=== PATIENT | female | born 1945 | race Caucasian/White ===

== ENCOUNTER 2021-02-25 23:46 | Observation (INO) | payer MEDICARE, OTHER ==
[2021-02-25] MEDS ORDERED: IPRATROPIUM/ALBUTEROL 3 ML NEB INH STA (23:51)
[2021-02-25] MEDS ORDERED: methylPREDNISolone SUCCINATE 125 MG/2 ML VIAL IVP STA (23:52)
[2021-02-25] MEDS ORDERED: ALBUTEROL NEB 2.5 MG/3 ML INH STA ×2 (23:52)
[2021-02-25] MEDS ORDERED: IPRATROPIUM/ALBUTEROL 3 ML NEB INH ONE (23:54)
--- NOTE | 2021-02-26 00:08 | ED Physician Documentation ---
History of Present Illness - Stated complaint Stated Complaint: SOA - History obtained from History obtained from: Family (daughter) - Additonal information Additional information: 72-year-old woman with history of end-stage COPD and depression, noncompliant with medications, presents with severe worsening shortness of breath tonight and chronic cough that is worsening tonight. Patient had 2 nebulizer treatments today prior to arrival without improvement. She is vaccinated against COVID-19. He did have some recent travel but no known Covid exposure. Further history limited by patient acuity/inability to speak. History obtained from her daughter. Full code Review of Systems Unable to obtain: Other (Review of systems limited by patient acuity) PD PAST MEDICAL HISTORY - Present Medications Home Medications: Ambulatory Orders Medication Instructions Recorded Confirmed Albuterol Sulf [Ventolin Hfa 2 puffs ORAL QID 02/26/21 02/26/21 Inhaler] Escitalopram Oxalate 20 mg PO DAILY 02/26/21 02/26/21 Omeprazole [PriLOSEC] 20 mg PO DAILY 02/26/21 02/26/21 - Allergies Allergies/Adverse Reactions: Allergies Allergy/AdvReac Type Severity Reaction Status Date / Time No Known Drug Allergies Allergy Verified 02/26/21 00:30 PD ED PE NORMAL - Vitals Vital signs reviewed: Yes - General General: Other (Moderate increased work of breathing, unable to speak. Squeezes hand on command) - HEENT HEENT: Atraumatic, PERRL, EOMI - Neck Neck: Supple, no meningeal sign - Cardiac Cardiac: Other (Borderline tachycardic rate, regular rhythm) - Respiratory Respiratory: Other (Bilateral inspiratory and expiratory wheezing. Moderate increased work of breathing) - Abdomen Abdomen: Non tender, Non distended - Derm Derm: Normal color, Warm and dry - Extremities Extremities: No edema - Psych Psych: Other (Unable to assess secondary to patient respiratory distress) Results - Vitals Vitals: Vital Signs - 24 hr 02/26/21 02/26/21 02/26/21 00:03 00:10 00:31 Heart Rate 107 H 101 H 100 Respiratory 33 H 26 H 28 H Rate Blood Pressure 179/165 H 148/101 H O2 Saturation 97 96 02/26/21 02/26/21 00:38 00:43 Heart Rate 102 H 102 H Respiratory 26 H 22 Rate Blood Pressure 159/115 H O2 Saturation 98 Oxygen O2 Source BIPAP - Labs Labs: Laboratory Tests 02/26/21 02/26/21 02/26/21 00:05 00:19 00:19 WBC 14.0 H RBC 5.16 Hgb 15.9 Hct 49.6 H MCV 96.1 MCH 30.8 MCHC 32.1 RDW 14.8 Plt Count 163 MPV 13.0 H Neut # (Auto) Not Reportable Lymph # (Auto) Not Reportable [place] # (Auto) Not Reportable Eos # (Auto) Not Reportable Baso # (Auto) Not Reportable Absolute Nucleated RBC Not Reportable Total Counted 100 Band Neuts % (Manual) 0 Abnorm Lymph % (Manual) 0 Nucleated RBC % Not Reportable Neutrophils # (Manual) 9.7 H Lymphocytes # (Manual) 3.5 Monocytes # (Manual) 0.6 Eosinophils # (Manual) 0.3 Basophils # (Manual) 0.0 Differential Comment MANUAL DIFFERENTIAL WBC Morphology NORMAL APPEARANCE Platelet Estimate NORMAL (130-450,000) Platelet Morphology NORMAL APPEARANCE RBC Morph Micro Appear NORMAL APPEARANCE Bld Gas Analysis Time 0008 Sample Site LEFT RADIAL ABG pH 7.17 L* ABG pCO2 73 H* ABG pO2 331 H* ABG HCO3 25.7 ABG Total CO2 28.0 ABG O2 Saturation 99 H ABG Base Excess -4.9 L Clinton Test POSITIVE O2 Delivery Device NON REBREATHER MASK FiO2 15.00 Sodium 138 Potassium 4.3 Chloride 101 Carbon Dioxide 25 Anion Gap 12.0 BUN 21 H Creatinine 1.5 H Estimated GFR (MDRD) 34 L Glucose 224 H Calcium 9.2 Total Bilirubin 0.9 AST 24 ALT 17 Alkaline Phosphatase 74 Total Protein 6.7 Albumin 4.7 Globulin 2.0 L Albumin/Globulin Ratio 2.4 H Lipase 21 L PD MEDICAL DECISION MAKING - ED course ED course: 76-year-old woman presents with severe COPD exacerbation. She is full code per her daughter. Will treat with BiPAP, nebulizers, steroids, plan for admission. improved WOB s/p 3 nebs. currently still on bipap. plan to admit to observation, repeat abg. Departure - Departure Disposition: ED Place in Observation Clinical Impression: COPD exacerbation Condition: Stable
[2021-02-26 00:26] LABS: BASOPHILS % (AUTO) 0.9 %; EOSINOPHILS % (AUTO) 3.1 %; HCT - HEMATOCRIT 49.6 % (37.0-47.0); HGB - HEMOGLOBIN 15.9 g/dL (12.0-16.0); LYMPHOCYTES % (AUTO) 20.5 %; MEAN CORPUSCULAR HEMOGLOBIN 30.8 pg (27.0-31.0); MEAN CORPUSCULAR HGB CONC 32.1 g/dL (32.0-36.0); MEAN CORPUSCULAR VOLUME 96.1 fL (81.0-99.0); MONOCYTES % (AUTO) 5.6 %; NEUTROPHILS % (AUTO) 69.3 %; PLT - PLATELET COUNT 163 10^3/uL (130-450); RED BLOOD COUNT 5.16 10^6/uL (4.20-5.40); RED CELL DISTRIBUTION WIDTH 14.8 % (12.0-15.0)
[2021-02-26 00:38] LABS: ABNORMAL LYMPHS % (MANUAL) 0 %; BAND NEUTROPHILS % (MANUAL) 0 %
[2021-02-26 00:39] LABS: ALBUMIN 4.7 g/dL (3.2-5.5); ALBUMIN/GLOBULIN RATIO 2.4 (1.0-2.2); BILIRUBIN,TOTAL 0.9 mg/dL (0.2-1.0); CALCIUM 9.2 mg/dL (8.5-10.3); CREATININE 1.5 mg/dL (0.4-1.0); POTASSIUM 4.3 mmol/L (3.5-5.0); TOTAL PROTEIN 6.7 g/dL (6.7-8.2)
[2021-02-26 00:51] LABS: ABG BASE EXCESS -4.9 mmol/L (-2.0-3.0); ABG HCO3 25.7 mmol/L (22.0-26.0); ABG OXYGEN SATURATION 99 % (94-98); ALLEN TEST POSITIVE
[2021-02-26] MEDS ORDERED: AZITHROMYCIN INJ 500 MG in SODIUM CHLORIDE 0.9% 250 ML IV STA (00:52)
[2021-02-26] MEDS ORDERED: cefTRIAXone 2 GM in SODIUM CHLORIDE 0.9% MINIBAG 100 ML IV STA (00:52)
[2021-02-26 00:55] LABS: ABG PH 7.17 (7.35-7.45)
[2021-02-26 00:56] LABS: ABG PCO2 73 mmHg (34-45); ABG PO2 331 mmHg (80-100)
[2021-02-26] MEDS ORDERED: cefTRIAXone 2 GM VIAL ONE (01:01)
[2021-02-26 01:03] LABS: DIFFERENTIAL COMMENT MANUAL DIFFERENTIAL; EOSINOPHILS # (MANUAL) 0.3 10^3/uL (0-0.7); LYMPHOCYTES # (MANUAL) 3.5 10^3/uL (1.5-3.5); LYMPHOCYTES % (MANUAL) 25 %; MONOCYTES # (MANUAL) 0.6 10^3/uL (0.0-1.0); NEUTROPHILS # (MANUAL) 9.7 10^3/uL (1.5-6.6); PLATELET ESTIMATE, MANUAL NORMAL (130-450,000) (NORMAL); PLATELET MORPHOLOGY NORMAL APPEARANCE (NORMAL); RBC MORPHOLOGY (MULTIPLE) NORMAL APPEARANCE (NORMAL); WBC MORPHOLOGY (MULTIPLE) NORMAL APPEARANCE (NORMAL)
[2021-02-26] MEDS ORDERED: HYDROcod/ACETAM 5/325 MG TABLET PO PRN (01:11)
[2021-02-26] MEDS ORDERED: ONDANSETRON ODT 4 MG TABLET TL PRN (01:11)
[2021-02-26] MEDS ORDERED: ACETAMINOPHEN 325 MG TABLET PO PRN (01:11)
[2021-02-26] MEDS ORDERED: SODIUM CHLORIDE FLUSH 0.9% 10 ML SYRINGE IVP PRN (01:11)
[2021-02-26] MEDS ORDERED: ONDANSETRON 4 MG/2 ML VIAL IVP PRN (01:11)
[2021-02-26 01:20] LABS: B. PARAPERTUSSIS- RESP PCR PAN NOT DETECTED; B. PERTUSSIS- RESP PCR PANEL NOT DETECTED; C. PNEUMONIAE- RESP PCR PANEL NOT DETECTED; CORONAVIRUS 229E-RESP PCR NOT DETECTED; CORONAVIRUS HKU1-RESP PCR NOT DETECTED; CORONAVIRUS NL63-RESP PCR NOT DETECTED; CORONAVIRUS OC43-RESP PCR NOT DETECTED; HUMAN METAPNEUMOVIRUS NOT DETECTED; INFLUENZA A- RESP PCR PANEL NOT DETECTED; INFLUENZA B - RESP PCR PANEL NOT DETECTED; M. PNEUMONIAE- RESP PCR PANEL NOT DETECTED; PARAINFLUENZA VIRUS 1 NOT DETECTED; PARAINFLUENZA VIRUS 2 NOT DETECTED; PARAINFLUENZA VIRUS 3 NOT DETECTED; PARAINFLUENZA VIRUS 4 NOT DETECTED; RHINOVIRUS/ENTEROVIRUS NOT DETECTED; RSV- RESP PCR PANEL NOT DETECTED; SARS-CoV-2 -RESP PCR PANEL NOT DETECTED
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
[2021-02-26] MEDS ORDERED: SODIUM CHLORIDE 0.9% 1,000 ML IV SCH (02:00)
[2021-02-26 02:25] LABS: ABG HCO3 28.3 mmol/L (22.0-26.0); ABG OXYGEN SATURATION 97 % (94-98); ABG PCO2 44 mmHg (34-45); ABG PH 7.41 (7.35-7.45); ABG PO2 88 mmHg (80-100); ABG RESPIRATORY RATE 16 b/min; ALLEN TEST POSITIVE
[2021-02-26] MEDS ORDERED: ALBUTEROL NEB 2.5 MG/3 ML INH PRN (07:42)
--- NOTE | 2021-02-26 08:01 | XRAY Report ---
PROCEDURE: Chest 1 View X-Ray INDICATIONS: Chest Pain TECHNIQUE: One view of the chest was acquired. COMPARISON: None FINDINGS: Surgical changes and devices: None. Lungs and pleura: No pleural effusions or pneumothorax. Lungs are clear. The lungs are hyperexpand ed. Mediastinum: The aorta is prominent and tortuous. The cardiac contours are within normal limits. Bones and chest wall: No suspicious bony lesions. Overlying soft tissues appear unremarkable. IMPRESSION: Hyperexpanded lungs are seen, without an acute cardiopulmonary abnormality seen. Note: No significant discrepancy from the preliminary report. Reviewed by: Maynor Salazar MD on 02/26/2021 7:00 AM DARIN Approved by: Maynor Salazar MD on 02/26/2021 7:00 AM DARIN Station ID: [id number]
[2021-02-26 08:23] LABS: BASOPHILS % (AUTO) 0.1 %; LYMPHOCYTES % (AUTO) 4.5 %; MEAN CORPUSCULAR HEMOGLOBIN 29.9 pg (27.0-31.0); MEAN CORPUSCULAR HGB CONC 31.1 g/dL (32.0-36.0); MEAN CORPUSCULAR VOLUME 96.2 fL (81.0-99.0); MONOCYTES % (AUTO) 1.5 %; NEUTROPHILS % (AUTO) 93.5 %; PLT - PLATELET COUNT 128 10^3/uL (130-450); RED BLOOD COUNT 4.68 10^6/uL (4.20-5.40); RED CELL DISTRIBUTION WIDTH 14.9 % (12.0-15.0); WHITE BLOOD COUNT 7.5 x10^3/uL (4.8-10.8)
[2021-02-26 08:24] LABS: ABNORMAL LYMPHS % (MANUAL) 0 %; BAND NEUTROPHILS % (MANUAL) 0 %
[2021-02-26 08:27] LABS: CALCIUM 9.1 mg/dL (8.5-10.3); CREATININE 0.8 mg/dL (0.4-1.0); MAGNESIUM 1.9 mg/dL (1.7-2.8); POTASSIUM 4.3 mmol/L (3.5-5.0)
[2021-02-26 08:47] LABS: DIFFERENTIAL COMMENT MANUAL DIFFERENTIAL; LYMPHOCYTES # (MANUAL) 0.4 10^3/uL (1.5-3.5); LYMPHOCYTES % (MANUAL) 5 %; MONOCYTES # (MANUAL) 0.2 10^3/uL (0.0-1.0); PLATELET ESTIMATE, MANUAL DECREASED (<130,000) (NORMAL); PLATELET MORPHOLOGY 1+ GIANT PLATELETS (NORMAL); RBC MORPHOLOGY (MULTIPLE) NORMAL APPEARANCE (NORMAL)
[2021-02-26] MEDS: IPRATROPIUM/ALBUTEROL 3 ML NEB INH SCH ×2 (08:59→12:08)
[2021-02-26] MEDS ORDERED: methylPREDNISolone SUCCINATE 40 MG/ML VIAL IVP SCH (09:00)
[2021-02-26] MEDS ORDERED: SODIUM CHLORIDE FLUSH 0.9% 10 ML SYRINGE IVP SCH (09:00)
[2021-02-26] MEDS ORDERED: cefTRIAXone 1 GM in SODIUM CHLORIDE 0.9% MINIBAG 100 ML IV SCH (09:00)
[2021-02-26] MEDS ORDERED: ENOXAPARIN 40 MG/0.4 ML SYRINGE SUBQ SCH (09:00)
--- NOTE | 2021-02-26 11:48 | DISCHARGE SUMMARY ---
Discharge Summary Admit Date: 02/26/21 Discharge Date: 02/26/21 Discharging Provider: Brian Chu Primary Care Provider: Out of state PCP Code Status: Attempt Resuscitation Condition at Discharge: Stable Discharge Disposition: 01 Home, Self Care - DIAGNOSES Admission Diagnoses: Acute respiratory failure with hypoxia and hypercapnia COPD exacerbation Dementia Discharge Diagnoses with Status of Each Condition: Acute respiratory failure with hypoxia and hypercapnia - resolved. COPD exacerbation - resolved. Dementia - stable. - HPI History of Present Illness: H&P per Dr. Strong: This is a 76-year-old white female who is described as having end-stage COPD by Her daughter who is at the bedside. She is Described as not very compliant with taking her medications as she is supposed to. She hates the inhalation machine that delivers nebulized albuterol. She is much prefer to do a hand-held nebulizer. Unfortunately she uses so much she is run out of that. She ran out about 2 days ago. If she gets a refill it will be an early refill and she has not asked her doctor back in [place] for 1.She is a previous history of a respiratory arrest with a resuscitation that was successful a little over a year ago. She still smokes 1 to 1-1/2 packs/day. She is not on oxygen at home. She is starting to have short-term memory issues, and can only walk about 25 or 30 feet. She lives with her back door facing her son's back door. She has maybe 35 feet to walk and is getting more a more difficult to make that distance. While she can do an occasional rare load of laundry, the patient is dependent on other people with regards to cleaning house, driving, or even walking across the yard to her son's house.Daughter states that her primary care provider is now gently suggesting that the patient may be a candidate for hospice when she returns from [facility]. The patient is from [place], and has been with her daughter for the last week to visit. She has 1 more week to go before she returns to [place]. Daughter notes that mom is having more short-term memory problems. She now comes in via ambulance because she started getting short severe cough and shortness of breath today. No fever, no chills. She has been vaccinated for Covid. She took her nebulizers twice today and in spite of that was so short of breath they had to call an ambulance. She was described as having a respiratory rate in her 40s. O2 sat in the 70s by the ambulance crew. She was put on 15 L and brought into the emergency room with an O2 sat in the low 90s.Her initial blood gas was a pH of 7.16. PCO2 72.8. PO2 331. Base excess -4.9. After nebulizers, BiPAP, steroids, her blood gas on BiPAP was 7.41. PCO2 44. PO2 68. She was seen by Dr. Ferrell. No temperature has been recorded yet and her heart rate was initially 107, blood pressure 179/165. Respirations 33. She was put on BiPAP to get an O2 sat of 97%. She received 2 more doses of albuterol, azithromycin, 125 mg of methylprednisolone, as well as DuoNeb. Her respiratory rate was last recorded an hour ago and was 27. Heart rate is down to 100. Still on BiPAP. Chest x-ray does not show infiltrate. The patient is now placed in observation to see if we can turn her COPD around. - HOSPITAL COURSE Hospital Course: She was admitted under observation for acute hypercapnic respiratory failure secondary to a COPD exacerbation. She initially required BiPAP in the emergency department but did not require BiPAP while in the ICU overnight. Repeat gas showed significant improvement in her hypercapnia. She felt back to her baseline the following morning after treatment with IV ceftriaxone, azithromycin, Solu-Medrol and DuoNeb's. She felt that she was ready to go home after discussion with her and her daughter, she was discharged home in a stable condition. We did do an exercise desaturation test prior to discharge and she does not require supplemental oxygen at home. She was able to walk nearly 100 feet without any issues. I did prescribe her prednisone 40 mg daily for 4 more days as well as Levaquin 500 mg daily for a total of 5 days given the COPD exacerbation. I also wrote a new prescription for her Trelegy as she is out of this inhaler at home. I asked her to return to the emergency department if she develops any shortness of breath or respiratory problems. She is agreeable to this. I also asked her to follow-up with her primary care physician when she returns to [place] next week. Her daughter tells me that her [id number] has already contacted her home health nurse to notify her of this hospitalization. - ALLERGIES Allergies/Adverse Reactions: Allergies Allergy/AdvReac Type Severity Reaction Status Date / Time No Known Drug Allergies Allergy Verified 02/26/21 00:30 - MEDICATIONS Home Medications: Ambulatory Orders Medication Instructions Recorded Confirmed Albuterol Sulf [Ventolin Hfa 2 puffs ORAL QID 02/26/21 02/26/21 Inhaler] Escitalopram Oxalate 20 mg PO DAILY 02/26/21 02/26/21 Fluticasone/Umeclidin/Vilanter 1 puffs INH DAILY #30 each 02/26/21 [Trelegy Ellipta 100-62.5-25] Ipratropium/Albuterol [Duoneb] 1 puffs PO QID 02/26/21 Omeprazole [PriLOSEC] 20 mg PO DAILY 02/26/21 02/26/21 levoFLOXacin [Levaquin] 500 mg PO DAILY 5 Days #10 tablet 02/26/21 predniSONE [Deltasone] 40 mg PO DAILY 4 Days #8 tablet 02/26/21 - PHYSICAL EXAM AT DISCHARGE General Appearance: positive: No acute distress, Alert Eyes Bilateral: positive: Normal inspection, Conjunctivae nml ENT: positive: ENT inspection nml Neck: positive: Nml inspection Respiratory: positive: No respiratory distress, Other (Diminished bilaterally.). negative: Wheezes, Rales Cardiovascular: positive: Regular rate & rhythm. negative: Irregularly irregular, Tachycardia, Systolic murmur Abdomen: positive: Non-tender, No distention. negative: Tenderness Skin: positive: Warm, Dry Extremities: positive: Pedal edema (Trace edema in bilateral lower extremities.) Neurologic/Psychiatric: positive: Motor nml. negative: Disoriented to person, Disoriented to place, Disoriented to time - LABS Result Diagrams: 02/26/21 08:09 02/26/21 08:09 - DIAGNOSTIC IMAGING Diagnostic Imaging Results: Final report reviewed - FOLLOW UP Follow Up: She was asked to follow-up with her primary care provider once she returns to [place] next week. - TIME SPENT Time Spent in Discharge (Minutes): 32
--- NOTE | 2021-02-26 11:48 | Discharge Plan ---
Discharge Plan Problem Reviewed?: Yes Disposition: Home, Self Care Condition: Stable Prescriptions: predniSONE [Deltasone] 40 mg PO DAILY 4 Days #8 tablet levoFLOXacin [Levaquin] 500 mg PO DAILY 5 Days #10 tablet Fluticasone/Umeclidin/Vilanter [Trelegy Ellipta 100-62.5-25] 1 puffs INH DAILY #30 each Diet: Regular Activity Restrictions: Activity as Tolerated Health Concerns: You were admitted to the hospital because of a COPD flareup. You needed to be treated with steroids and inhalers as well as BiPAP because you had elevated carbon dioxide. Fortunately, he quickly improved with these therapies. You are now stable for discharge home. Plan of Treatment: Please take prednisone 40 mg daily for 4 more days. I have sent a new prescription for your trelegy inhaler which you should take as prescribed. You may continue the nebulizer as needed. Please also take the antibiotic levaquin daily as prescribed for 5 more days. It is also encouraged that you stop smoking given your severe COPD. Care Goals: The goal is to treat the underlying COPD and to prevent further exacerbations. Assessment: Patient and family expressed understanding of the treatment plan. Additional Instructions or Follow Up instructions: Please follow-up with your primary care physician once you return to [place]. No Smoking: If you smoke, Please STOP! Call for help.
[2021-02-26 13:12] VITALS: BP 143/79
[2021-02-26] MEDS ORDERED: AZITHROMYCIN INJ 500 MG in SODIUM CHLORIDE 0.9% 250 ML IV SCH (21:00)
== END 2021-02-26 12:45 | disposition home or self-care (01) ==
LOC: ED 23:46 → ICU 02-26 01:11
PROVIDERS: ADMIT Specialist; ATTEND Internal Medicine
DX: J96.02 Acute respiratory failure with hypercapnia (principal); J43.9 Emphysema, unspecified; G30.9 Alzheimer's disease, unspecified; F02.80 Dementia in other diseases classified elsewhere, unspecified severity, without behavioral disturbance, psychotic disturbance, mood disturbance, and anxiety; F32.9 Major depressive disorder, single episode, unspecified; F17.210 Nicotine dependence, cigarettes, uncomplicated; R64 Cachexia; Z68.22 Body mass index [BMI] 22.0-22.9, adult; T48.6X6A Underdosing of antiasthmatics, initial encounter; Z91.138 Patient's unintentional underdosing of medication regimen for other reason; R32 Unspecified urinary incontinence; H54.7 Unspecified visual loss; Z87.01 Personal history of pneumonia (recurrent); Z20.822 Contact with and (suspected) exposure to COVID-19; Z79.51 Long term (current) use of inhaled steroids; Z79.899 Other long term (current) drug therapy
CPT/HCPCS: 36415; 36600; 71045; 80048; 80053; 82803; 83690; 83735; 85025; 87040; 87150; 87631; 93005; 94640; 94761; 96365; 96366; 96367; 96375; 96376; 99285; G0378; 0202U